=== PATIENT | female | born 1980 | race Caucasian/White ===

== ENCOUNTER → 2017-05-08 | Outpatient (CLI) | payer MEDICAID ==
--- NOTE | 2017-05-08 12:07 | MRI ---
STUDY: MRI OF THE CERVICAL SPINE HISTORY: Cervical spondylosis with radiculopathy. Neck pain with radiating pain to left shoulder. Comparison: None. Technique: An MRI of the cervical spine including sagittal T1, T2, and T2 STIR, axial T1, and T2 FSE images was performed using standard departmental protocol. Findings: Sagittal images: There is straightening of the usual cervical lordosis. Vertebral body heights and al ignment are otherwise within normal limits. Marrow signal is age-appropriate. There is multilevel de generative disk disease and degenerative endplate change. No evidence for fracture or significant bon e marrow edema is seen. There is no significant prevertebral soft tissue swelling. The surrounding p araspinal soft tissues are unremarkable. There is contouring of the ventral aspect of the spinal cor d at C5/6. There is no evidence of cord compression. No intrinsic signal abnormalities are identified in the spinal cord itself. Axial images: C2 -- C3: Normal. C3 -- C4: There is a posterior disc osteophyte complex and mild bilateral uncovertebral osteophyte fo rmation. The central canal and neural foramina are adequate at this level. C4 -- C5: There is a posterior disc osteophyte complex and bilateral uncovertebral osteophyte formati on. There is mild central canal stenosis. Neural foramina are adequate. C5 -- C6: There is a posterior disc osteophyte complex and bilateral uncovertebral osteophyte formati on. This results in mild central canal stenosis. The neural foramina are adequate. C6 -- C7: There is a shallow posterior disc osteophyte complex. The central canal and neural foramina are adequate. C7 -- T1: Normal. IMPRESSION: 1. Multilevel cervical spondylosis. 2. Straightening of the usual cervical lordosis. This finding may be positional or secondary to muscl e spasm. Clinical correlation is recommended. 3. Mild spinal stenosis at C4/5 and C5/6. Reported By:
== END | disposition home or self-care (01) | DRG 552 ==
LOC: RAD 10:29
PROVIDERS: ATTEND Psychiatry & Neurology Neurology
DX: M47.22 Other spondylosis with radiculopathy, cervical region (principal); M48.02 Spinal stenosis, cervical region
CPT/HCPCS: 72141

== ENCOUNTER → 2017-09-24 | Outpatient (CLI) | payer MEDICAID | LOC: RT 13:09 | PROVIDERS: ATTEND Psychiatry & Neurology Neurology | DX: G56.03 Carpal tunnel syndrome, bilateral upper limbs (principal) | CPT/HCPCS: 95911 ==